=== PATIENT | female | born 1965 | race Two or more races ===

== ENCOUNTER 2024-10-30 11:41 | Inpatient (IN) | payer OTHER, SELFPAY ==
[~2024-10-30] VITALS: Ht 167.6 cm; Wt 112.1 kg
--- NOTE | 2024-10-30 12:05 | ED.PDOC ---
History of Present Illness HPI Comments 59-year-old female with PMHx DM, HTN presents with a chief complaint of Tachypnea and headache. Patient states that onset of her symptoms started at 04:00 this morning. Patient was found to be in A-Fib, but has no history of A- Fib. Patient denies any chest pain at this time. Patient is endorsing a headache, states that it is to the posterior left portion of her head. Patients EKG shows A-Fib with a rate of 142. 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 Hx Family History Family History: Reviewed,noncontributory to illness Social History Smoker: Non-Smoker Alcohol: Denies ETOH Use Drugs: Denies Drug Use Lives In: Home Constitutional: denies: chills, diaphoresis, fatigue, fever, malaise, sweats, weakness, others EENTM: denies: blurred vision, double vision, ear bleeding, ear discharge, ear drainage, ear pain, ear ringing, eye pain, eye redness, hearing loss, mouth pain, mouth swelling, nasal discharge, nose bleeding, nose congestion, nose pain, photophobia, tearing, throat pain, throat swelling, voice changes, others Respiratory: reports: shortness of breath; denies: cough, hemoptysis, orthopnea, SOB at rest, SOB with excertion, stridor, wheezing, others Cardiovascular: denies: chest pain, dizzy spells, diaphoresis, Dyspnea on exertion, edema, irregular heart beat, left arm pain, lightheadedness, palpitations, PND, syncope, others Gastrointestinal: denies: abdomen distended, abdominal pain, blood streaked bowels, constipated, diarrhea, dysphagia, difficulty swallowing, hematemesis, melena, nausea, poor appetite, poor fluid intake, rectal bleeding, rectal pain, vomiting, others Genitourinary: denies: abnormal vagina bleeding, burning, dyspareunia, dysuria, flank pain, frequency, hematuria, incontinence, pain, , vagina discharge, urgency, others Neurological: reports: headache; denies: dizziness, fainting, left sided numbness, left sided weakness, numbness, paresthesia, pre-existing deficit, right sided numbness, right sided weakness, seizure, speech problems, tingling, tremors, weakness, others Musculoskeletal: denies: back pain, gout, joint pain, joint swelling, muscle pain, muscle stiffness, neck pain, others Integumetry: denies: bruises, change in color, change in hair/nails, dryness, laceration, lesions, lumps, rash, wounds, others Allergic/Immunocompromised: denies: Difficulty Healing, Frequent Infections, Hi ves, Itching, others Hematologic/Lymphatic: denies: anemia, blood clots, easy bleeding, easy bruising, swollen glands, others Endocrine: denies: excessive hunger, excessive sweating, excessive thirst, excessive urination, flushing, intolerance to cold, intolerance to heat, unexplained weight gain, unexplained weight loss, others Psychiatric: denies: anxiety, bipolar disorder, depression, hopeless, panic disorder, schizophrenia, sleepless, suicidal, others All Other Systems: Reviewed and Negative Physical Exam General Appearance: Moderate Distress, Normal HEENT: Normal ENT Inspection, Pharynx Normal, TMs Normal Neck: Full Range of Motion, Non-Tender, Normal, Normal Inspection Respiratory: Chest Non-Tender, Lungs Clear, No Accessory Muscle Use, No Respiratory Distress, Normal Breath Sounds Cardiovascular: Irregular, No Edema, No JVD, No Murmur, No Gallop, Normal Peripheral Pulses Breast Exam: Deferred Gastrointestinal: No Organomegaly, Non Tender, No Pulsatile Mass, Normal Bowel Sounds, Soft Genitalia: Deferred Pelvic: Deferred Rectal: Deferred Extremities: No calf tenderness, Normal capillary refill, Normal inspection, Normal range of motion, Non-tender, No pedal edema Musculoskeletal : Apperance: Normal 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 Was a procedure done?: No EKG EKG : Pulse Rate (adult): 142 [place]: Normal Cardiac Rhythm: Afib Block: None Hypertrophy: None ST: Normal Differential Dx Considerations may include: AFib X-Ray, Labs, Meds, VS Vital Signs Date Time Temp Pulse Resp B/P (MAP) Pulse Ox O2 Delivery O2 Flow Rate FiO2 10/30/24 12:05 142 10/30/24 11:50 142 Patient alert. Came in because of shortness a breath. EKG reviewed does show atrial fibrillation. Vitals stable. New onset. Establish intravenous access. Was given amiodarone. Reviewed her history. Explained to the patient that she has atrial fibrillation and we will be admitted for further studies. Continue cardiac monitoring. Time of 1ST Reevaluation: 12:16 Reevaluation 1ST: Unchanged Patient Education/Counseling: Diagnosis, Treatment Family Education/Counseling: No Family Present Departure 1 Departure Time of Disposition: 12:11 Impression: Primary Impression: Atrial fibrillation Qualified Codes: I48.0 - Paroxysmal atrial fibrillation Disposition: ADMITTED INPATIENT Admit to: Med Surg Condition: Guarded Critical Care Note Critical Care Time?: Yes (90 min-critical care time only) Critical care comment: Atrial fibrillation started amiodarone Stability Stability form required: No Heart Score Heart Score: Heart Score Response (Comments) Value History Slightly Suspicious 0 EKG Normal 0 Age 45-64 1 Risk Factors >3 or Hx ASHD 2 Troponin Normal limit 0 Total 3 I personally scribed for GALIDNO CHURCHILL MD ([email or web address]) on 10/30/24 at 12:05. Electronically submitted by Ta Payne ([email or web address]). GALINDO CHURCHILL MD Oct 30, 2024 12:05
[2024-10-30] MEDS: AMIODARONE BOLUS KIT 100 ML IV ONE (12:17)
[2024-10-30 12:29] LABS: Basophils # (auto) 0 10 ^3/uL (0-0.2); Basophils % (auto) 0.7 % (0.0-2.0); Eosinophils # (auto) 0.1 10 ^3/uL (0-0.8); Eosinophils % (auto) 2.9 % (0.0-7.0); Hematocrit 42.4 % (36.0-46.0); Lymphocytes # (auto) 1.3 10 ^3/uL (0.4-5.4); Lymphocytes % (auto) 25.2 % (10.0-50.0); Mean Corpuscular Hemoglobin 27.7 pg (28.0-32.0); Mean Corpuscular Hgb Conc. 33.1 g/dL (32.0-36.0); Mean Corpuscular Volume 83.7 fL (80.0-100.0); Monocytes # (auto) 0.4 10 ^3/uL (0-1.3); Monocytes % (auto) 7.6 % (0.0-12.0); Neutrophils # (auto) 3.2 10 ^3/uL (1.6-8.6); Neutrophils % (auto) 63.6 % (37.0-80.0); Platelet Count (auto) 322 10^3/uL (140-450); Red Blood Cells 5.07 10^6/uL (4.0-5.20)
[2024-10-30] MEDS: AMIODARONE 360mg/200mL PREMIX 200 ML IV ONE ×2 (12:30→19:50)
--- NOTE | 2024-10-30 12:35 | DVH ---
CHEST RADIOGRAPH Indication: sob Technique: Single frontal view of the chest was obtained COMPARISON: None FINDINGS: Lines and Tubes: None Lungs: Hypoinflation with bronchovascular crowding. No focal airspace consolidations. Pleura: No effusion. No pneumothorax. Cardiomediastinal contours: Borderline enlargement of the cardiac silhouette which may be accentuated by poor inspiration. Bones: Unremarkable IMPRESSION: Hypoinflation. No evidence of acute cardiopulmonary disease.
[2024-10-30 12:36] LABS: Potassium 4.3 mmol/L (3.5-5.1); Sodium 141 mmol/L (136-145)
[2024-10-30 12:37] VITALS: PULSE 110; RESP 18; O2SAT 96
[2024-10-30 12:37] LABS: Anion Gap 6 (5-15); Carbon Dioxide 26 mmol/L (20-31)
[2024-10-30 12:38] LABS: Calcium 9.8 mg/dL (8.7-10.4)
[2024-10-30 12:42] LABS: BUN/Creatinine Ratio 15.9 (10.0-20.0); Blood Urea Nitrogen 13 mg/dL (9-23); Chloride 109 mmol/L (98-107)
[2024-10-30 12:57] LABS: Glucose 151 mg/dL (74-106)
[2024-10-30 15:50] LABS: Urine Bacteria None Seen /hpf (None Seen)
[2024-10-30 16:04] LABS: Urine Blood Negative /uL (Negative); Urine Clarity Clear (Clear); Urine Color Colorless (Yellow); Urine Mucus FEW (None Seen); Urine Protein, UAD Negative (Negative); Urine Specific Gravity 1.009 (1.001-1.035); Urine Squamous Epithelial Cell FEW /hpf (<5); Urine Urobilinogen Normal (Negative); Urine WBC 1 /HPF (0-5)
[2024-10-30] MEDS ORDERED: MORPHINE SULFATE INJ 2 MG/ml SYRG IV PRN (16:15)
[2024-10-30] MEDS ORDERED: ONDANSETRON HCL 4 MG/2 ML VIAL IV PRN (16:15)
[2024-10-30] MEDS ORDERED: NITROGLYCERIN 0.4 MG SL TAB SL PRN (16:15)
--- NOTE | 2024-10-30 16:52 | DVHHP2 ---
History of Present Illness Reason for Visit: Shortness of breath History of Present Illness A 59-year-old female with a past medical history of hypertension, type 2 diabetes mellitus, anxiety, and questionable history of atrial fibrillation presents to the ED with a chief complaint of persistent headache since early this morning, accompanied by progressive shortness of breath and severe dyspnea on exertion. The patient reports awakening with a headache, which has not subsided. She denies chest pain or palpitations. She is unaware of any prior diagnosis of atrial fibrillation but states she saw a museum guide 10 years ago with normal findings. Past Medical History As stated in HPI Past Surgical History Denies Family History Reviewed, non-contributory to the management of this case. Past Social History The patient lives at home, denies smoking, alcohol or illicit drugs abuse. Review of Systems Constitutional: Yes: Malaise; No: Fever, Chills, Sweats, Weakness, Other Eyes: No: Pain, Vision change, Conjunctivae inflammation, Eyelid inflammation, Other, Redness ENT: Other (Headaches); No: Ear pain, Ear discharge, Nose pain, Nose discharge, Nose congestion, Mouth pain, Mouth swelling, Throat pain, Throat swelling Respiratory: Shortness of breath, SOB with excertion; No: Cough, Dry, Wheezing, Hemoptysis, Pleuritic Pain, Sputum, Wheezing, Other Cardiovascular: No: Chest Pain, Palpitations, Orthopnea, Paroxysmal Noc. Dyspnea, Edema, Lt Headedness, Other Gastrointestinal: No: Nausea, Vomiting, Abdominal Pain, Diarrhea, Constipation, Melena, Hematochezia, Other Genitourinary: No Dysuria, No Frequency, No Incontinence, No Hematuria, No Retention, No Other Musculoskeletal: No: other, neck pain, shoulder pain, arm pain, back pain, hand pain, leg pain, foot pain Skin: No: Rash, Lesions, Jaundice, Bruising, Other Neurological: No: Weakness, Numbness, Incoordination, Change in speech, Confusion, Seizures, Other Allergies: Coded Allergies: NO KNOWN ALLERGIES (Unverified , 10/30/24) Exam Vital Signs Vital Signs Date Time Temp Pulse Resp B/P (MAP) Pulse Ox O2 Delivery O2 Flow Rate FiO2 10/30/24 16:00 80 10/30/24 15:00 16 175/101 (125) 96 10/30/24 12:37 Room Air* 0 21 10/30/24 12:37 98.2 98.2 General Appearance: Alert, Oriented X3, Cooperative, mild distress HEENT: Atraumatic, PERRLA, EOMI, Mucous membr. moist/pink Respiratory: Clear to auscultation, Normal air movement Cardiovascular: Other (Atrial fibrillation at a controlled rate) Abdominal: Normal bowel sounds, Soft, No tenderness Extremities: No clubbing, No cyanosis, No edema Skin: No rashes, No breakdown, No significant lesion Neuro: Normal speech, Normal tone Psych/Mental Status: Mental status NL Labs/Xrays Labs Test 10/30/24 13:05 10/30/24 12:14 10/30/24 00:00 Range/Units Troponin I High Sensitivity < 3 L </=34 ng/L White Blood Count 5.0 4.4-10.8 10^3/uL Red Blood Count 5.07 4.0-5.20 10^6/uL Hemoglobin 14.0 12.2-16.2 g/dL Hematocrit 42.4 36.0-46.0 % Mean Corpuscular Volume 83.7 80.0-100.0 fL Mean Corpuscular Hemoglobin 27.7 L 28.0-32.0 pg Mean Corpuscular Hemoglobin Concent 33.1 32.0-36.0 g/dL Red Cell Distribution Width 13.0 11.8-14.3 % Platelet Count 322 140-450 10^3/uL Mean Platelet Volume 8.6 6.9-10.8 fL Neutrophils (%) (Auto) 63.6 37.0-80.0 % Lymphocytes (%) (Auto) 25.2 10.0-50.0 % Monocytes (%) (Auto) 7.6 0.0-12.0 % Eosinophils (%) (Auto) 2.9 0.0-7.0 % Basophils (%) (Auto) 0.7 0.0-2.0 % Neutrophils # (Auto) 3.2 1.6-8.6 10 ^3/uL Lymphocytes # (Auto) 1.3 0.4-5.4 10 ^3/uL Monocytes # (Auto) 0.4 0-1.3 10 ^3/uL Eosinophils # (Auto) 0.1 0-0.8 10 ^3/uL Basophils # (Auto) 0 0-0.2 10 ^3/uL Nucleated Red Blood Cells 0.0 % Sodium Level 141 136-145 mmol/L Potassium Level 4.3 3.5-5.1 mmol/L Chloride Level 109 H 98-107 mmol/L Carbon Dioxide Level 26 20-31 mmol/L Anion Gap 6 5-15 Blood Urea Nitrogen 13 9-23 mg/dL Creatinine 0.82 0.550-1.02 mg/dL Glomerular Filtration Rate Calc 82 >90 mL/min BUN/Creatinine Ratio 15.9 10.0-20.0 Serum Glucose 151 H 74-106 mg/dL Calcium Level 9.8 8.7-10.4 mg/dL Urine Color Colorless Yellow Urine Clarity Clear Clear Urine pH 5.0 5.0-9.0 Urine Specific [place] 1.009 1.001-1.035 Urine Protein Negative Negative Urine Ketones Negative Negative Urine Blood Negative Negative /uL Urine Nitrite Negative Negative Urine Bilirubin Negative Negative Urine Urobilinogen Normal Negative mg/dL Urine Leukocyte Esterase Negative Negative /uL Urine RBC 1 0 - 4 /hpf Urine Microscopic WBC 1 0-5 /HPF Urine Squamous Epithelial Cells Few <5 /hpf Urine Bacteria None seen None Seen /hpf Urine Mucus Few None Seen Urine Glucose Normal Normal mg/dL PROCEDURE(s): CXRP - CHEST PORTABLE REASON: sob ORDER NUMBER(s): [id number], ACCESSION NUMBER(s): [id number] CHEST RADIOGRAPH Indication: sob Technique: Single frontal view of the chest was obtained COMPARISON: None FINDINGS: Lines and Tubes: None Lungs: Hypoinflation with bronchovascular crowding. No focal airspace consolidations. Pleura: No effusion. No pneumothorax. Cardiomediastinal contours: Borderline enlargement of the cardiac silhouette which may be accentuated by poor inspiration. Bones: Unremarkable IMPRESSION: Hypoinflation. No evidence of acute cardiopulmonary disease. Assessment/Plan Assessment/Plan # ?new onset AFib with RVR --likely contributing to dyspnea and fatigue. # dyspnea on exertion likely multifactorial, AFib with RVR, possible diastolic dysfunction, deconditioning, or anxiety # rule out PE Admit to telemetry unit Continue with amiodarone drip. Chads Vasc score 2. HAS-BLED Score 0. Initiate therapeutic Lovenox once CT head is completed Cardiology consult Echocardiogram, check BNP CTA Magnesium IV Monitor electrolytes and replete as needed Monitor # headaches CT head # anxiety Continue with home medication # diabetes type 2 Insulin sliding scale Check A1c Statins DVT prophylaxis Medical plan discussed with patient and RN Plan discussed with: Patient Date of Service: Oct 30, 2024 Billing Provider: TITA MAZA Common Visit Codes: 54167-[id number] INP/OBS CARE (HIGH) TITA MAZA Oct 30, 2024 16:51
[2024-10-30] MEDS ORDERED: ATOR10TA52 PO (17:10)
[2024-10-30] MEDS ORDERED: AMLO1TAB22 PO (17:10)
[2024-10-30] MEDS ORDERED: VENL1TAB97 PO (17:10)
[2024-10-30] MEDS ORDERED: SEMA14TA2 PO (17:11)
[2024-10-30] MEDS ORDERED: DEXTROSE (50%) 50ML SYRG IV PRN (17:15)
[2024-10-30 17:37] LABS: Triglycerides 116 mg/dL (< 150)
[2024-10-30 17:38] LABS: LDL Cholesterol 74 mg/dL (< 100)
[2024-10-30 17:40] LABS: Cholesterol 124 mg/dL (< 200)
[2024-10-30] MEDS: IOHEXOL 350 MG/ML 100ML IJ ONE (17:44)
[2024-10-30 17:52] LABS: HDL Cholesterol 36 mg/dL (40-59)
[2024-10-30 18:19] VITALS: BP 125/75; PULSE 66; RESP 17; TEMP 97.9; O2SAT 96
[2024-10-30 18:20] VITALS: PULSE 116; RESP 16; O2SAT 94
[2024-10-30 18:25] LABS: Amphetamine Screen, Urine Neg (NEGATIVE); Barbiturate Scree,Urine Neg (NEGATIVE); Benzodiazephine Screen, Urine Neg (NEGATIVE); Cannabinoid Screen, Urine Neg (NEGATIVE); Cocaine Screen, Urine Neg (NEGATIVE); Opiate Scree,Urine Neg (NEGATIVE); Phencyclidine Screen, Urine Neg (NEGATIVE)
--- NOTE | 2024-10-30 19:39 | DVH ---
EXAM: CT HEAD WITHOUT CONTRAST INDICATION: headaches TECHNIQUE: CT of the head without intravenous contrast. Radiation Dose : 1. Head: CT Dose: CTDI volume is 57.49 mGy. Dose-length product is 921.48 mGy*cm The dose indicators for CT are the volume Computed Tomography (CT) Dose Index (CTDIvol) and the Dose Length Product (DLP), and are measured in units of mGy and mGy-cm, respectively. These indicators are not patient dose, but values generated from the CT scanner acquisition factors. The report includes radiation exposure data for exposures received during this examination. COMPARISON: None FINDINGS: There is no evidence of acute intracranial hemorrhage, extra-axial collection, mass effect, midline s hift, herniation or hydrocephalus. The ventricles, sulci and cisterns are age appropriate. The tracy-white differentiation is intact. Patchy periventricular and subcortical white matter hypoattenuation is nonspecific but may be related to small vessel ischemic disease. Bilateral maxillary mucosal sinus disease. The remaining visualized paranasal sinuses and left masto id air cells are clear. Chronic appearing right mastoid air cell scarring noted. The surrounding soft tissues and osseous structures are unremarkable. IMPRESSION: 1. No acute intracranial abnormality. 2. Paranasal sinus disease. Radiation optimization: All CT scans at this facility use at least one of these dose optimization boaz hniques: automated exposure control mA and/or kV adjustment per patient size (includes targeted exam s where dose is matched to clinical indication) or iterative reconstruction.
--- NOTE | 2024-10-30 19:43 | DVH ---
CTA Chest with intravenous contrast INDICATION: rule out PE COMPARISON: None TECHNIQUE: Multidetector spiral CTA of the chest was performed of the chest with intravenous contrast . PULMONARY ANGIOGRAPHY PROTOCOL was utilized using a bolus-tracking technique centered on the main p ulmonary artery. Axial, coronal and sagittal multiplanar and MIP reformats were performed. Radiation Dose : 1. Chest: CTDI volume is 28.89 mGy. Dose-length product is 996.42 mGy*cm The dose indicators for CT are the volume Computed Tomography (CT) Dose Index (CTDIvol) and the Dose Length Product (DLP), and are measured in units of mGy and mGy-cm, respectively. These indicators are not patient dose, but values generated from the CT scanner acquisition factors. The report includes radiation exposure data for exposures received during this examination. Findings: Pulmonary artery: No pulmonary embolism. The main pulmonary artery measures 2.6 cm. The ascending aorta measures 3.8 cm. Lower neck: Normal thyroid. Lungs: No focal consolidation, pleural effusion or pneumothorax. Heart/Vascular Structures: Normal heart size. No pericardial effusion. Lymph Nodes: No adenopathy Musculoskeletal: No acute osseous abnormality. Soft tissues: Normal. Upper abdomen: Limited portions of the upper abdomen are unremarkable. IMPRESSION: 1. No pulmonary embolism. 2. No acute thoracic finding.
[2024-10-30 20:00] VITALS: PULSE 66; PULSE 80; RESP 17; O2SAT 96
[2024-10-30] MEDS: MAGNESIUM SULFATE 1GM/100ML 100 ML IV SCH (20:11)
[2024-10-30 21:00] VITALS: BP 125/75; PULSE 66; RESP 17; TEMP 97.9; O2SAT 96
[2024-10-30] MEDS: ATORVASTATIN 20 MG TAB PO SCH (21:45)
[2024-10-30] MEDS: ACCU-CHEK COMFORT CURVE STRIP VI SCH (21:45)
[2024-10-30] MEDS: ENOXAPARIN SOD 80 MG/0.8ML SYRINGE SC SCH (21:45)
[2024-10-30] MEDS: InsuLIN REG 1unit/0.01ml Soln (100units/ml) SC SCH (21:50)
[2024-10-31] VITALS (9 sets, daily range): BP systolic 112–129; BP diastolic 62–72; PULSE 62–84; RESP 17–20; TEMP 97.7–98.6; O2SAT 95–100
[2024-10-31] MEDS: SEMAGLUTIDE 14 MG PO SCH (06:02)
[2024-10-31 08:05] LABS: Basophils # (auto) 0 10 ^3/uL (0-0.2); Basophils % (auto) 0.6 % (0.0-2.0); Eosinophils # (auto) 0.2 10 ^3/uL (0-0.8); Eosinophils % (auto) 3.4 % (0.0-7.0); Hematocrit 38.9 % (36.0-46.0); Hemoglobin 13.2 g/dL (12.2-16.2); Lymphocytes # (auto) 1.5 10 ^3/uL (0.4-5.4); Lymphocytes % (auto) 32.8 % (10.0-50.0); Mean Corpuscular Hemoglobin 28.2 pg (28.0-32.0); Mean Corpuscular Volume 82.9 fL (80.0-100.0); Monocytes # (auto) 0.3 10 ^3/uL (0-1.3); Monocytes % (auto) 6.6 % (0.0-12.0); Neutrophils # (auto) 2.5 10 ^3/uL (1.6-8.6); Neutrophils % (auto) 56.6 % (37.0-80.0); Nucleated Red Blood Cells % 0.1 %; Platelet Count (auto) 303 10^3/uL (140-450); Red Blood Cells 4.69 10^6/uL (4.0-5.20); Red Cell Distribution Width 13.3 % (11.8-14.3); White Blood Cell 4.4 10^3/uL (4.4-10.8)
[2024-10-31 08:17] LABS: Alanine Aminotransferase 11 U/L (7-40); Albumin 4.4 g/dL (3.2-4.8); Alkaline Phosphatase 53 U/L (46-116); Anion Gap 8 (5-15); Blood Urea Nitrogen 10 mg/dL (9-23); Calcium 9.9 mg/dL (8.7-10.4); Carbon Dioxide 26 mmol/L (20-31); Magnesium 2.3 mg/dL (1.6-2.6); Potassium 3.7 mmol/L (3.5-5.1); Sodium 142 mmol/L (136-145); Total Protein 6.9 g/dL (5.7-8.2)
[2024-10-31 08:18] LABS: Bilirubin, Total 0.7 mg/dL (0.2-1.0)
[2024-10-31 08:20] LABS: Aspartate Aminotransferase 12 U/L (13-40); Chloride 108 mmol/L (98-107); Glucose 114 mg/dL (74-106)
--- NOTE | 2024-10-31 09:11 | DVHINCON2 ---
Date Seen: Oct 31, 2024 Referring Physician MARY ANNE Lau Reason for Consultation A-fib with RVR History of Present Illness This is a pleasant 59-year-old female who presented to the emergency room via EMS with a chief complaint of TODD and SOB since 0400 on 10/30/2024. Per patient, she awoke from her sleep with a severe TODD which progressed to worsening TODD with severe SOB and a near syncopal event as witnessed by who called 911. Upon EMS arrival the patient was medicated with IV fluids and undergoing a BGL of 213 mg/dL. Upon arrival to the emergency room she underwent multiple 12 lead electrocardiograms x 3 revealing an atrial fibrillation rhythm with rapid ventri cular rate up to 142 bpm. She was treated with amiodarone bolus and magnesium IV with successful transition into a normal sinus rhythm. Denies a history of cardiac arrhythmias. Serial troponin levels are negative. Per , the patient snores at HS. Significant medical history includes hypertension, dyslipidemia, ayh-hjzibig-yskaszjdp diabetes mellitus, and obesity. Past Medical History Past medical history reviewed. No other significant than mentioned above. Past Surgical History Past surgical history reviewed. No other significant than mentioned above. Family History: Patient reports no known family medical history. Family History Family history reviewed. Significant for father with acute CVA in his 50s y.o. Social History Denies the use of illicit drugs, alcohol, or tobacco use. Allergies: Coded Allergies: NO KNOWN ALLERGIES (Unverified , 10/30/24) Home Meds Reported Medications Semaglutide (Rybelsus) 14 Mg Tab, 1 TAB PO QAM 10/30/24 Atorvastatin Calcium (ATORVASTATIN CALCIUM) 10 Mg Tab, 1 TAB PO DAILY 10/30/24 Amlodipine Besylate (Amlodipine Besylate) 5 Mg Tab, 1 TAB PO DAILY 10/30/24 Venlafaxine Hydrochloride (Venlafaxine Hcl) 37.5 Mg Tab, 1 TAB PO DAILY 10/30/24 Home Meds Home medications reviewed. Current Medications Current Medications Medications (Trade) Dose Ordered Sig/Bala Route PRN Reason Start Time Stop Time Status Last Admin Ondansetron HCl (Zofran) 4 mg Q4HP PRN IV NAUSEA / VOMITING 10/30/24 16:15 Nitroglycerin (Ntrostat Sublingual) 0.4 mg Q5MINP PRN SL FOR CHEST PAIN 10/30/24 16:15 Morphine Sulfate 2 mg Q30M PRN IV FOR CHEST PAIN 10/30/24 16:15 Enoxaparin Sodium (Lovenox) 80 mg Q12HR SC 10/30/24 22:00 10/30/24 21:45 Magnesium Sulfate/ Dextrose 100 ml @ 100 mls/hr Q1HR IV 10/30/24 18:00 10/30/24 19:59 DC 10/30/24 21:34 Amlodipine Besylate (Norvasc Tablet) 5 mg DAILY PO 10/31/24 10:00 Venlafaxine HCl (Effexor) 37.5 mg DAILY PO 10/31/24 10:00 Atorvastatin Calcium (Lipitor) 10 mg HS PO 10/30/24 22:00 10/30/24 21:45 Diagnostic Test (Pha) (Accu-Chek Comfort Curve T) 1 strip ACHS 10/30/24 22:00 10/31/24 06:03 Insulin Human Regular (InsuLIN R) ACHS SC 10/30/24 22:00 Dextrose 50 ml UD PRN IV Blood Sugar LESS THAN 60 10/30/24 17:15 Patient Own Medication 1 tab QAM PO 10/31/24 07:00 Review of Systems Constitutional: No symptom reported Ears, Nose, & Throat: No symptom reported Eyes: No symptom reported Neurological: TODD Pulmonary/Respiratory: SOB Cardiovascular: No symptom reported Gastrointestinal: No symptom reported Genitourinary: No symptom reported Musculoskeletal: No symptom reported Skin: No symptom reported Psychiatric: No symptom reported Endocrine: No symptom reported Hemotologic/Lymphatic: No symptom reported Vital Signs Vital Signs Date Time Temp Pulse Resp B/P (MAP) Pulse Ox O2 Delivery O2 Flow Rate FiO2 10/31/24 05:00 97.7 62 17 112/62 (79) 96 97.7 10/30/24 20:00 Room Air* 0 21 Physical Exam General Appearance: Cooperative. Well developed. Well nourished. In no acute distress Head Exam: Normal inspection Neck Exam: Normal inspection. Non-tender. Normal alignment Pulmonary/Respiratory: Chest non-tender. Clear bilateral breath sounds Cardiovascular/Chest: Regular rate and rhythm. S1, S2. No murmurs. No JVD. Peripheral Pulses: 2+ Radial (R). 2+ Radial (L). 2+ Pedal (R). 2+ Pedal (L) Abdominal Exam: Normal bowel sounds. Soft. Nontender. No hepatospenomegaly. No masses Ankle Exam: Negative ankle edema Lower extremities: Negative lower extremity edema Neuro/Mental Status: A&O x4. Coherent Thoughts/Psych: Normal thought pattern. Appropriate mood and affect. Good judgement and insight Appearance: In no acute distress Skin Exam: Normal inspection. Normal color. Warm. Dry Labs/Diagnostic Data Labs Test 10/31/24 07:11 10/31/24 06:05 10/30/24 13:05 10/30/24 12:14 Range/Units White Blood Count 4.4 4.4-10.8 10^3/uL Red Blood Count 4.69 4.0-5.20 10^6/uL Hemoglobin 13.2 12.2-16.2 g/dL Hematocrit 38.9 36.0-46.0 % Mean Corpuscular Volume 82.9 80.0-100.0 fL Mean Corpuscular Hemoglobin 28.2 28.0-32.0 pg Mean Corpuscular Hemoglobin Concent 34.0 32.0-36.0 g/dL Red Cell Distribution Width 13.3 11.8-14.3 % Platelet Count 303 140-450 10^3/uL Mean Platelet Volume 8.7 6.9-10.8 fL Neutrophils (%) (Auto) 56.6 37.0-80.0 % Lymphocytes (%) (Auto) 32.8 10.0-50.0 % Monocytes (%) (Auto) 6.6 0.0-12.0 % Eosinophils (%) (Auto) 3.4 0.0-7.0 % Basophils (%) (Auto) 0.6 0.0-2.0 % Neutrophils # (Auto) 2.5 1.6-8.6 10 ^3/uL Lymphocytes # (Auto) 1.5 0.4-5.4 10 ^3/uL Monocytes # (Auto) 0.3 0-1.3 10 ^3/uL Eosinophils # (Auto) 0.2 0-0.8 10 ^3/uL Basophils # (Auto) 0 0-0.2 10 ^3/uL Nucleated Red Blood Cells 0.1 % Sodium Level 142 136-145 mmol/L Potassium Level 3.7 3.5-5.1 mmol/L Chloride Level 108 H 98-107 mmol/L Carbon Dioxide Level 26 20-31 mmol/L Anion Gap 8 5-15 Blood Urea Nitrogen 10 9-23 mg/dL Creatinine 0.77 0.550-1.02 mg/dL Glomerular Filtration Rate Calc 89 >90 mL/min BUN/Creatinine Ratio 13.0 10.0-20.0 Serum Glucose 114 H 74-106 mg/dL Calcium Level 9.9 8.7-10.4 mg/dL Magnesium Level 2.3 1.6-2.6 mg/dL Total Bilirubin 0.7 0.2-1.0 mg/dL Aspartate Amino Transferase (AST) 12 L 13-40 U/L Alanine Aminotransferase (ALT) 11 7-40 U/L Alkaline Phosphatase 53 46-116 U/L Total Protein 6.9 5.7-8.2 g/dL Albumin 4.4 3.2-4.8 g/dL POC Glucose 109 H 70-106 mg/dl Troponin I High Sensitivity < 3 L </=34 ng/L Triglycerides Level 116 < 150 mg/dL Cholesterol Level 124 < 200 mg/dL LDL Cholesterol 74 < 100 mg/dL HDL Cholesterol 36 L 40-59 mg/dL Thyroid Stimulating Hormone (TSH) 1.54 0.55-4.78 uIU/mL Hemoglobin A1c 5.9 H <5.7 % A1C B-Type Natriuretic Peptide 53.76 0-100 pg/mL Test 10/30/24 00:00 Range/Units Urine Color Colorless Yellow Urine Clarity Clear Clear Urine pH 5.0 5.0-9.0 Urine Specific [place] 1.009 1.001-1.035 Urine Protein Negative Negative Urine Ketones Negative Negative Urine Blood Negative Negative /uL Urine Nitrite Negative Negative Urine Bilirubin Negative Negative Urine Urobilinogen Normal Negative mg/dL Urine Leukocyte Esterase Negative Negative /uL Urine RBC 1 0 - 4 /hpf Urine Microscopic WBC 1 0-5 /HPF Urine Squamous Epithelial Cells Few <5 /hpf Urine Bacteria None seen None Seen /hpf Urine Mucus Few None Seen Urine Glucose Normal Normal mg/dL Urine Opiates Screen Neg NEGATIVE Urine Fentanyl Screen Neg NEGATIVE Urine Barbiturates Screen Neg NEGATIVE Urine Phencyclidine Screen Neg NEGATIVE Urine Amphetamines Screen Neg NEGATIVE Urine Benzodiazepines Screen Neg NEGATIVE Urine Cocaine Screen Neg NEGATIVE Urine Cannabinoids Screen Neg NEGATIVE Assessment Paroxysmal atrial fibrillation, stage IIIA, newly diagnosed Rule out structural heart disease Rule out obstructive sleep apnea Hypertension Dyslipidemia Szq-yduolds-jrtiwmcqr diabetes mellitus Obesity Plan/Recommendation (Dr. Barclay) Scheduled for a transthoracic echocardiogram to rule out structural heart disease. In the meantime, initiate metoprolol XL, amiodarone, and therapeutic Lovenox (?[id number] Score, HAS-BLED Score 0 points). Monitor ECG changes closely and notify. Replete electrolytes as necessary, K>4 and Mg>2. TSH level WNL. Strongly recommended for an outpatient event monitor and sleep study to rule out DUNCAN. Rest of recommendations per clinical course. Thank you for allowing us to participate in this patient's care. Please call if you have any questions or concerns. This medical document was created using an electronic medical record system with voice recognition software and computerized dictation system. Although this document has been carefully reviewed, there might still be some phonetic and typographical errors. Occasional wrong-word or ``sound-alike substitutions may have occurred due to the inherent limitations of voice recognition software. These areas are purely typographical due to imperfections of the software programs and do not reflect any compromise in the patient's medical care. Please read the chart carefully and recognize, using context, where these substitutions have occurred. Plan discussed with: Patient, Spouse, Other NYHA Physical activity limitations: NA Date of Service: Oct 31, 2024 Billing Provider: TYLOR RODRIGUEZ Cardiology Common Codes: [id number] INP/OBS CARE (High) TYLOR RODRIGUEZ Oct 31, 2024 09:10
[2024-10-31] MEDS: VENLAFAXINE HCL 37.5MG TABLET PO SCH (09:36)
[2024-10-31] MEDS: POTASSIUM CHL 20 Meq TABLET PO ONE (09:37)
[2024-10-31] MEDS: METOPROLOL SUCCINATE XL 50 MG TAB PO SCH (09:38)
[2024-10-31] MEDS: AMIODARONE HCL 200 MG TAB PO SCH (09:38)
[2024-10-31] MEDS ORDERED: amLODIPine BESYLATE 5 MG TAB PO SCH (10:00)
[2024-10-31 11:05] LABS: Free T3 2.58 pg/mL (2.3-4.2)
[2024-10-31 11:06] LABS: Free T4 (Free Thyroxine) 0.98 ng/dL (0.89-1.76)
--- NOTE | 2024-10-31 11:58 | ECG ---
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
--- NOTE | 2024-10-31 11:58 | ECG ---
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
--- NOTE | 2024-10-31 11:59 | ECG ---
[facility] Test Date: 2024-10-30 Test Time: 11:50:26 Pat Name: REHAB KAY Department: ED Room: [facility]3T B Gender: F Cryptographic Vulnerability Analyst: LAURA : 1965 Requested By: GALINDO CHURCHILL Order Number: [id number] Reading MD: Mark Hess Measurements Intervals [place] Rate: 142 P: 0 NE: 0 QRS: 57 QRSD: 90 T: 52 QT: 327 QTc: 503 Interpretive Statements Atrial fibrillation Low voltage, precordial leads Minimal ST depression, inferior leads Borderline prolonged QT interval Electronically Signed On 11-02-2024 14:43:31 PDT by Mark Hess Please click the below link to view image of tracing.
--- NOTE | 2024-10-31 16:17 | DVHSR ---
APPROVED REPORT EXAM: Two-dimensional and M-mode echocardiogram with Doppler and color Doppler. Blood Pressure: 112/62 mmHg INDICATION AFIB with RVR RISK FACTORS Height: 66, Weight: 245 DIMENSIONS LVDd4.9 (3.8-5.7cm)LA (2D)4.9 (1.9-4.0cm)Aortic Root3.3 (2.0-3.7cm) LVDs2.9 (2.5-4.0cm)LA (MM) (1.9-4.0cm)Aortic Cusp Exc1.7 (1.5-2.0cm) EF (%) 70.0 (55-70%)Rt. Atrium4.7 (1.9-4.0cm)Asc. Aorta cm IVSd1.0 (0.7-1.1cm)RV (D) (1.8-2.4cm) PWd1.1 (0.7-1.1cm) Mitral Valve MitralMitral Stenosis E wave0.79m/sMV Mean GR.mmHg A wave0.75m/sMV Peak GR.69mmHg E/A ratio1.12D MVAcm2 DECEL [id number] 1/2 [id number] IVRTmsDop MVA2.52cm2 Aortic Valve Aortic ValveAortic Stenosis V11.03m/Marie Mean GR.5mmHg V21.53m/Marie Peak GR.9mmHg LVOT Diameter2.0 (1.8-2.4cm)Doppler AVA2.11cm2 Pulmonic Valve V20.94m/s Tricuspid Valve TR Velocity2.15m/s [id number] Conclusion lvef 55% by visual estimate normal RV function left atrium enlarged mild no severe valve abnormalities noted
--- NOTE | 2024-10-31 16:23 | DVHPNRES ---
Progress Note Date Seen: Oct 31, 2024 Resident Creating Document: BELEN MOLINA RESIDENT Has the PT tested + for MRSA If YES, has PT been informed?: No Medical Necessity Reason Pt with a Central, PICC or Fol: No Subjective Review of Systems A 59-year-old female with a past medical history of hypertension, type 2 diabetes mellitus, anxiety presents to the ED with a chief complaint of persistent headache since1 day ago, accompanied by progressive shortness of breath and severe dyspnea on exertion. The patient reports awakening with a headache, which has not subsided. She denies chest pain or palpitations. She is unaware of any prior diagnosis of atrial fibrillation but states she saw a supervisor frame sample and pattern 10 years ago with normal findings. Patient was seen by ED physician and started on amiodarone drip with cardioversion to sinus rhythm, today EKG showed sinus rhythm and echo showed mild enlargement of the LA with normal EF Past Medical History As stated in HPI Past Surgical History Denies Family History Reviewed, non-contributory to the management of this case. Past Social History The patient lives at home, denies smoking, alcohol or illicit drugs abuse. Objective vital signs Vital Sign Date Time Temp Pulse Resp B/P (MAP) Pulse Ox O2 Delivery O2 Flow Rate FiO2 10/31/24 13:00 98.6 73 18 115/72 (86) 100 98.6 10/31/24 07:30 Room Air* 0 21 Total Intake and Output 10/30/24 10/30/24 10/31/24 15:00 23:00 07:00 Intake Total 66.66 ml 299.99 ml 200 ml Balance 66.66 ml 299.99 ml 200 ml medications Current Medications Medications Dose Ordered Sig/Bala Route Start Time Stop Time Status Last Admin Dose Admin Ondansetron HCl 4 mg Q4HP PRN IV 10/30/24 16:15 Nitroglycerin 0.4 mg Q5MINP PRN SL 10/30/24 16:15 Morphine Sulfate 2 mg Q30M PRN IV 10/30/24 16:15 Enoxaparin Sodium 80 mg Q12HR SC 10/30/24 22:00 10/31/24 09:38 80 MG Venlafaxine HCl 37.5 mg DAILY PO 10/31/24 10:00 10/31/24 09:36 37.5 MG Atorvastatin Calcium 10 mg HS PO 10/30/24 22:00 10/30/24 21:45 10 MG Diagnostic Test (Pha) 1 strip ACHS 10/30/24 22:00 10/31/24 10:48 1 STRIP Insulin Human Regular ACHS SC 10/30/24 22:00 Dextrose 50 ml UD PRN IV 10/30/24 17:15 Amiodarone HCl 200 mg Q12HR PO 10/31/24 10:00 10/31/24 09:38 200 MG Metoprolol Succinate 25 mg DAILY PO 10/31/24 10:00 10/31/24 09:38 25 MG Examination General Appearance: Cooperative. Well developed. Well nourished. In no acute distress Head Exam: Normal inspection Neck Exam: Normal inspection. Non-tender. Normal alignment Pulmonary/Respiratory: Chest non-tender. Clear bilateral breath sounds Cardiovascular/Chest: Regular rate and rhythm. S1, S2. No murmurs. No JVD. Peripheral Pulses: 2+ Radial (R). 2+ Radial (L). 2+ Pedal (R). 2+ Pedal (L) Abdominal Exam: Normal bowel sounds. Soft. Nontender. No hepatospenomegaly. No masses Ankle Exam: Negative ankle edema Lower extremities: Negative lower extremity edema Neuro/Mental Status: A&O x4. Coherent Thoughts/Psych: Normal thought pattern. Appropriate mood and affect. Good judgement and insight Appearance: In no acute distress Skin Exam: Normal inspection. Normal color. Warm. Dry laboratory and microbiology Laboratory Tests 10/31/24 07:11 Test 10/31/24 07:11 Range/Units Serum Glucose 114 H 74-106 mg/dL Problem List/Assessment/Plan Problem List/Assessment/Plan #Paroxysmal atrial fibrillation, stage IIIA, newly diagnosed #Rule out obstructive sleep apnea #Hypertension #Dyslipidemia #Exz-jgjxcpz-kpnwiifxj diabetes mellitus #Obesity Cardiac diet Amiodarone 200 mg BID Atorvastatin 10 mg Enoxaparin 80 mg BID Metoprolol 25 mg PO Venlafaxine 37.5 mg PO Case discussed with Dr Salas Full code Plan discussed with: Patient, Other (rn) Date of Service: Oct 31, 2024 Billing Provider: NAZARIO SALAS MD Common Visit Codes: [id number] INP/OBS CARE(HIGH) BELEN MOLINA RESIDENT Oct 31, 2024 16:22 NAZARIO SALAS MD Nov 01, 2024 09:24
[2024-11-01 01:00] VITALS: BP 151/69; PULSE 67; RESP 20; TEMP 97.5; O2SAT 96
[2024-11-01 05:00] VITALS: BP 146/78; PULSE 76; RESP 19; TEMP 97.9; O2SAT 95
[2024-11-01 08:00] VITALS: PULSE 64
[2024-11-01 09:00] VITALS: BP 138/79; PULSE 70; RESP 17; TEMP 97; O2SAT 96
[2024-11-01] MEDS ORDERED: METO25TA36 PO (09:06)
[2024-11-01] MEDS ORDERED: APIX5TAB PO (09:06)
[2024-11-01] MEDS ORDERED: FLECAINIDE ACETATE 50 MG TAB PO SCH (10:00)
[2024-11-01] MEDS ORDERED: APIXABAN 5 MG TAB PO SCH (10:00)
[2024-11-01] MEDS ORDERED: FLEC100T PO (10:06)
--- NOTE | 2024-11-01 10:07 | DVHPN2 ---
Consult Progress Note Date Seen: Nov 01, 2024 Subjective Review of Systems: CVS:Normal, RESPIRATORY:Normal, NEURO:Normal Objective vital signs Vital Sign Date Time Temp Pulse Resp B/P (MAP) Pulse Ox O2 Delivery O2 Flow Rate FiO2 11/01/24 09:00 97.0 70 17 138/79 (98) 96 97.0 11/01/24 08:00 Room Air* 0 21 Total Intake and Output 10/31/24 10/31/24 11/01/24 15:00 23:00 07:00 Intake Total 600 ml 1400 ml 840 ml Balance 600 ml 1400 ml 840 ml medications Current Medications Medications Dose Ordered Sig/Bala Route Start Time Stop Time Status Last Admin Dose Admin Ondansetron HCl 4 mg Q4HP PRN IV 10/30/24 16:15 Nitroglycerin 0.4 mg Q5MINP PRN SL 10/30/24 16:15 Morphine Sulfate 2 mg Q30M PRN IV 10/30/24 16:15 Venlafaxine HCl 37.5 mg DAILY PO 10/31/24 10:00 10/31/24 09:36 37.5 MG Atorvastatin Calcium 10 mg HS PO 10/30/24 22:00 10/31/24 22:24 10 MG Diagnostic Test (Pha) 1 strip ACHS 10/30/24 22:00 11/01/24 06:07 1 STRIP Insulin Human Regular ACHS SC 10/30/24 22:00 10/31/24 22:39 2 UNITS Dextrose 50 ml UD PRN IV 10/30/24 17:15 Metoprolol Succinate 25 mg DAILY PO 10/31/24 10:00 10/31/24 09:38 25 MG Flecainide Acetate 100 mg Q12HR PO 11/01/24 10:00 UNV Apixaban 5 mg BID PO 11/01/24 10:00 UNV Examination: LUNGS:Normal, CVS:Abnormal (Intermittent A-fib events on bus driver/monitor), NEURO:Normal laboratory and microbiology Laboratory Tests 10/31/24 07:11 Test 10/31/24 07:11 Range/Units Serum Glucose 114 H 74-106 mg/dL Problem List/Assessment/Plan Problem List/Assessment/Plan Paroxysmal atrial fibrillation, stage IIIA, newly diagnosed Rule out obstructive sleep apnea Hypertension Dyslipidemia Yal-pubrdhi-rnhuvfrks diabetes mellitus Obesity Plan/Recommendation (Dr. Barclay) Transthoracic echocardiogram revealed LVEF 55% with mild left atrial enlargement. Continue metoprolol XL, transition to flecainide BID and Eliquis BID ([id number] Score 2 points, HAS-BLED Score 0 points). Replete electrolytes as necessary, K>4 and Mg>2. TSH level WNL. Strongly recommended for an outpatient event monitor and sleep study to rule out DUNCAN. Follow-up with a primary laboratory mechanical technician within 3-4 weeks post-discharge. There is no further cardiac work-up indicated at this time. Kindly call with any questions or concerns. Thank you for allowing us to participate in this patient's care. This medical document was created using an electronic medical record system with voice recognition software and computerized dictation system. Although this document has been carefully reviewed, there might still be some phonetic and typographical errors. Occasional wrong-word or ``sound-alike substitutions may have occurred due to the inherent limitations of voice recognition software. These areas are purely typographical due to imperfections of the software programs and do not reflect any compromise in the patient's medical care. Please read the chart carefully and recognize, using context, where these substitutions have occurred. Plan discussed with: Patient, Spouse, Other Date of Service: Nov 01, 2024 Billing Provider: TYLOR RODRIGUEZ Cardiology Common Codes: [id number] INP/OBS CARE(Mod) TYLOR RODRIGUEZ Nov 01, 2024 10:07
--- NOTE | 2024-11-01 10:07 | DVHDSRES ---
Discharge Summary Date of Admission Resident Creating Document: BELEN MOLINA RESIDENT Oct 30, 2024 at 16:04 Date of Discharge: Nov 01, 2024 Admitting Diagnosis atrial fibrilation new onset RVR Labs/Diagnostic Data: Laboratory Results Test 11/01/24 09:55 11/01/24 06:05 10/31/24 07:11 10/30/24 13:05 POC Glucose 122 mg/dl (70-106) White Blood Count 4.4 10^3/uL (4.4-10.8) Red Blood Count 4.69 10^6/uL (4.0-5.20) Hemoglobin 13.2 g/dL (12.2-16.2) Hematocrit 38.9 % (36.0-46.0) Mean Corpuscular Volume 82.9 fL (80.0-100.0) Mean Corpuscular Hemoglobin 28.2 pg (28.0-32.0) Mean Corpuscular Hemoglobin Concent 34.0 g/dL (32.0-36.0) Red Cell Distribution Width 13.3 % (11.8-14.3) Platelet Count 303 10^3/uL (140-450) Mean Platelet Volume 8.7 fL (6.9-10.8) Neutrophils (%) (Auto) 56.6 % (37.0-80.0) Lymphocytes (%) (Auto) 32.8 % (10.0-50.0) Monocytes (%) (Auto) 6.6 % (0.0-12.0) Eosinophils (%) (Auto) 3.4 % (0.0-7.0) Basophils (%) (Auto) 0.6 % (0.0-2.0) Neutrophils # (Auto) 2.5 10 ^3/uL (1.6-8.6) Lymphocytes # (Auto) 1.5 10 ^3/uL (0.4-5.4) Monocytes # (Auto) 0.3 10 ^3/uL (0-1.3) Eosinophils # (Auto) 0.2 10 ^3/uL (0-0.8) Basophils # (Auto) 0 10 ^3/uL (0-0.2) Nucleated Red Blood Cells 0.1 % Sodium Level 142 mmol/L (136-145) Chloride Level 108 mmol/L (98-107) Carbon Dioxide Level 26 mmol/L (20-31) Anion Gap 8 (5-15) Blood Urea Nitrogen 10 mg/dL (9-23) Creatinine 0.77 mg/dL (0.550-1.02) Glomerular Filtration Rate Calc 89 mL/min (>90) BUN/Creatinine Ratio 13.0 (10.0-20.0) Serum Glucose 114 mg/dL (74-106) Calcium Level 9.9 mg/dL (8.7-10.4) Total Bilirubin 0.7 mg/dL (0.2-1.0) Aspartate Amino Transferase (AST) 12 U/L (13-40) Alanine Aminotransferase (ALT) 11 U/L (7-40) Alkaline Phosphatase 53 U/L (46-116) Total Protein 6.9 g/dL (5.7-8.2) Albumin 4.4 g/dL (3.2-4.8) Free Thyroxine (T4) Calculated 0.98 ng/dL (0.89-1.76) Free Triiodothyronine (T3) pg/mL 2.58 pg/mL (2.3-4.2) Troponin I High Sensitivity < 3 ng/L (</=34) Triglycerides Level 116 mg/dL (< 150) Cholesterol Level 124 mg/dL (< 200) LDL Cholesterol 74 mg/dL (< 100) HDL Cholesterol 36 mg/dL (40-59) Thyroid Stimulating Hormone (TSH) 1.54 uIU/mL (0.55-4.78) Test 10/30/24 12:14 10/30/24 00:00 Hemoglobin A1c 5.9 % A1C (<5.7) B-Type Natriuretic Peptide 53.76 pg/mL (0-100) Urine Color Colorless (Yellow) Urine Clarity Clear (Clear) Urine pH 5.0 (5.0-9.0) Urine Specific Dagmar 1.009 (1.001-1.035) Urine Protein Negative (Negative) Urine Ketones Negative (Negative) Urine Blood Negative /uL (Negative) Urine Nitrite Negative (Negative) Urine Bilirubin Negative (Negative) Urine Urobilinogen Normal mg/dL (Negative) Urine Leukocyte Esterase Negative /uL (Negative) Urine RBC 1 /hpf (0 - 4) Urine Microscopic WBC 1 /HPF (0-5) Urine Squamous Epithelial Cells Few /hpf (<5) Urine Bacteria None seen /hpf (None Seen) Urine Mucus Few (None Seen) Urine Glucose Normal mg/dL (Normal) Urine Opiates Screen Neg (NEGATIVE) Urine Fentanyl Screen Neg (NEGATIVE) Urine Barbiturates Screen Neg (NEGATIVE) Urine Phencyclidine Screen Neg (NEGATIVE) Urine Amphetamines Screen Neg (NEGATIVE) Urine Benzodiazepines Screen Neg (NEGATIVE) Urine Cocaine Screen Neg (NEGATIVE) Urine Cannabinoids Screen Neg (NEGATIVE) Other Laboratory Tests 10/31/24 07:11 Brief Hx & Hospital Course: 59-year-old female with PMHx of hypertension, type 2 diabetes mellitus, anxiety, presented with persistent headache, shortness of breath, and exertional dyspnea. She was found to be in new-onset atrial fibrillation. She was started on amiodarone drip and later transitioned to flecainide and apixaban. Workup included EKG (sinus rhythm 24h later) , echo (LVEF 55%, mild LA enlargement), She remained hemodynamically stable throughout hospitalization. No acute distress noted. DUNCAN was suspected and outpatient sleep study is recommended. Discharge Medications: Flecainide 100 mg BID daily Atorvastatin 10 mg PO daily Metoprolol 25 mg PO Venlafaxine 37.5 mg PO Apixaban 5 mg PO BID (new anticoagulation) General Appearance: Cooperative. Well developed. Well nourished. In no acute distress Head Exam: Normal inspection Neck Exam: Normal inspection. Non-tender. Normal alignment Pulmonary/Respiratory: Chest non-tender. Clear bilateral breath sounds Cardiovascular/Chest: Regular rate and rhythm. S1, S2. No murmurs. No JVD. Peripheral Pulses: 2+ Radial (R). 2+ Radial (L). 2+ Pedal (R). 2+ Pedal (L) Abdominal Exam: Normal bowel sounds. Soft. Nontender. No hepatospenomegaly. No masses Ankle Exam: Negative ankle edema Lower extremities: Negative lower extremity edema Neuro/Mental Status: A&O x4. Coherent Thoughts/Psych: Normal thought pattern. Appropriate mood and affect. Good judgement and insight Appearance: In no acute distress Skin Exam: Normal inspection. Normal color. Warm. Dry Case discussed with Dr Salas Full code Consults/Reason for consult cardiology due to afib Operations or Procedures CTA Chest with intravenous contrast INDICATION: rule out PE COMPARISON: None TECHNIQUE: Multidetector spiral CTA of the chest was performed of the chest with intravenous contrast. PULMONARY ANGIOGRAPHY PROTOCOL was utilized using a bolus- tracking technique centered on the main pulmonary artery. Axial, coronal and sagittal multiplanar and MIP reformats were performed. Radiation Dose : 1. Chest: CTDI volume is 28.89 mGy. Dose-length product is 996.42 mGy*cm The dose indicators for CT are the volume Computed Tomography (CT) Dose Index (CTDIvol) and the Dose Length Product (DLP), and are measured in units of mGy and mGy-cm, respectively. These indicators are not patient dose, but values generated from the CT scanner acquisition factors. The report includes radiation exposure data for exposures received during this examination. Findings: Pulmonary artery: No pulmonary embolism. The main pulmonary artery measures 2.6 cm. The ascending aorta measures 3.8 cm. Lower neck: Normal thyroid. Lungs: No focal consolidation, pleural effusion or pneumothorax. Heart/Vascular Structures: Normal heart size. No pericardial effusion. Lymph Nodes: No adenopathy Musculoskeletal: No acute osseous abnormality. Soft tissues: Normal. Upper abdomen: Limited portions of the upper abdomen are unremarkable. IMPRESSION: 1. No pulmonary embolism. 2. No acute thoracic finding. EXAM: CT HEAD WITHOUT CONTRAST INDICATION: headaches TECHNIQUE: CT of the head without intravenous contrast. Radiation Dose : 1. Head: CT Dose: CTDI volume is 57.49 mGy. Dose-length product is 921.48 mGy*cm The dose indicators for CT are the volume Computed Tomography (CT) Dose Index (CTDIvol) and the Dose Length Product (DLP), and are measured in units of mGy and mGy-cm, respectively. These indicators are not patient dose, but values generated from the CT scanner acquisition factors. The report includes radiation exposure data for exposures received during this examination. COMPARISON: None FINDINGS: There is no evidence of acute intracranial hemorrhage, extra-axial collection, mass effect, midline shift, herniation or hydrocephalus. The ventricles, sulci and cisterns are age appropriate. The tracy-white differentiation is intact. Patchy periventricular and subcortical white matter hypoattenuation is nonspecific but may be related to small vessel ischemic disease. Bilateral maxillary mucosal sinus disease. The remaining visualized paranasal sinuses and left mastoid air cells are clear. Chronic appearing right mastoid air cell scarring noted. The surrounding soft tissues and osseous structures are unremarkable. IMPRESSION: 1. No acute intracranial abnormality. 2. Paranasal sinus disease. Condition at Discharge: Stable Final Diagnosis/Problems List #Paroxysmal atrial fibrillation, stage IIIA, newly diagnosed #Rule out obstructive sleep apnea #Hypertension #Dyslipidemia #Ral-sdlsxrm-tspyrdeba diabetes mellitus #Obesity Discharge Disposition: Home Discharge Instruct/Medications Diet: Cardiac 2g Na,low cholest Activity: Light activity Follow Up/Referral: dc clinic in 1 week, fu with wellness assistant Medications: see prescription Discharge Statement: "Patient was advised to return to the ER or call 911 if any headaches, dizziness, shortness of breath, chest pain, abdominal pain, bleeding, fevers, or worsening of medical condition. Patient was counseled about treatment plan, medications, possible side effects, patientverbalized understanding. All questions were answered to the best of my ability. This discharge took greater then 30 minutes in planning, reviewing documentation, counseling the patient, and discussing with other team members." ASSESSMENT ASSESSMENT Assessment afib new onset Date of Service: Nov 01, 2024 Billing Provider: NAZARIO SALAS MD Common Visit Codes: 59897-SLH/OBS DISCH DAY >30min BELEN MOLINA RESIDENT Nov 01, 2024 10:07 NAZARIO SALAS MD Nov 02, 2024 11:17
[2024-11-01 10:45] LABS: Potassium 4.2 mmol/L (3.5-5.1)
[2024-11-01 11:19] VITALS: BP 138/79; PULSE 76; RESP 18; TEMP 98.6; O2SAT 97
== END 2024-11-01 12:20 | disposition home or self-care (01) | DRG 309 ==
LOC: ER 11:51 → OVERFLOW 16:04 → TELE-WESTW 18:11
PROVIDERS: ADMIT Student in an Organized Health Care Education/Training Program; ATTEND Student in an Organized Health Care Education/Training Program
DX: I48.0 Paroxysmal atrial fibrillation (principal); Z68.41 Body mass index [BMI] 40.0-44.9, adult; I10 Essential (primary) hypertension; F41.9 Anxiety disorder, unspecified; E11.9 Type 2 diabetes mellitus without complications; E66.9 Obesity, unspecified; E78.5 Hyperlipidemia, unspecified; G47.33 Obstructive sleep apnea (adult) (pediatric); Z79.84 Long term (current) use of oral hypoglycemic drugs; Z82.3 Family history of stroke
CPT/HCPCS: 36415; 70450; 71045; 71275; 80048; 80053; 80061; 80307; 81001; 82962; 83036; 83735; 83880; 84132; 84439; 84443; 84481; 84484; 85025; 93005; 93306; 96365; 99291; 99292; G0378; J1815